=== PATIENT | female | born 1985 | race Caucasian/White ===

== ENCOUNTER 2018-02-10 20:57 | Emergency (ER) | payer BC ==
[~2018-02-10] VITALS: Ht 152.4 cm; Wt 85.5 kg
[~2018-02-10 20:57] MED LIST: MOTRIN800 MG PO; NO MEDS; XANAX0.25 MG PO
[2018-02-10] MEDS ORDERED: ZOFRAN4 MG/TAB PO (23:24)
[2018-02-10] MEDS ORDERED: PERCOCET 5/325M1 TAB PO (23:24)
[2018-02-10 23:48] VITALS: BP 132/79
== END 2018-02-10 23:55 | disposition home or self-care (01) | DRG 605 ==
LOC: ED 20:57
DX: S90.31XA Contusion of right foot, initial encounter (principal); W51.XXXA Accidental striking against or bumped into by another person, initial encounter; Y93.41 Activity, dancing

== ENCOUNTER 2020-05-31 07:32 | Emergency (ER) | payer BC ==
[~2020-05-31] VITALS: Ht 152.4 cm; Wt 85.0 kg
[~2020-05-31 07:32] MED LIST changes: +PERCOCET 5/325M1 TAB PO; +ZOFRAN4 MG/TAB PO
[2020-05-31] MEDS ORDERED: NAPROXEN500 MG PO (08:06)
[2020-05-31 08:10] VITALS: BP 129/72
== END 2020-05-31 08:20 | disposition home or self-care (01) | DRG 605 ==
LOC: ED 07:32
DX: S90.121A Contusion of right lesser toe(s) without damage to nail, initial encounter (principal); W22.03XA Walked into furniture, initial encounter

== ENCOUNTER 2023-02-25 14:25 | Emergency (ER) | payer BC ==
[~2023-02-25] VITALS: Ht 152.4 cm; Wt 67.0 kg
[~2023-02-25 14:25] MED LIST changes: +NAPROXEN500 MG PO
[2023-02-25 14:33] VITALS: BP 122/81
[2023-02-25 15:00] VITALS: BP 109/70
[2023-02-25 15:03] LABS: BASO% 0.2 % (0-3); EOS% 1.3 % (0-8); HEMATOCRIT 36.7 % (37.0-47.0); HEMOGLOBIN 11.5 g/dl (12.0-16.0); LYMPH% 19.7 % (15-41); MEAN CORPUSCULAR HGB 30.7 pG CALC (26.0-32.0); MEAN CORPUSCULAR HGB CONC 31.3 g/dL CAL (32.0-36.0); MONO% 3.4 % (2-13); NEUT# 3.97 thou/uL (2.00-7.15); NEUT% 75.4 % (42-76); RED BLOOD COUNT 3.75 mill/uL (4.20-5.60)
[2023-02-25 15:04] LABS: MEAN CELL VOLUME 97.9 fL CALC (80.0-100.0)
[2023-02-25 15:16] LABS: ALBUMIN 3.9 g/dL (3.2-5.0); ALKALINE PHOSPHATASE 49 u/l (38-126); ANION GAP 11 (6-22 (CALC)); BUN 10 mg/dL (7-17); BUN/CREATININE RATIO 23 (12-20 (CALC)); CARBON DIOXIDE 23 mmol/l (22-30); CHLORIDE 109 mmol/l (95-108); CREATININE 0.4 mg/dL (0.5-1.0); GFR FOR AFR.AMER. > 60 ML/MIN (>=60 (CALC)); GFR OTHER RACES > 60 ML/MIN (>=60 (CALC)); LIPASE 108 u/l (23-300); POTASSIUM 4.1 mmol/l (3.5-5.1); SGOT/AST 16 u/l (14-36); SODIUM 139 mmol/l (137-146); TOTAL PROTEIN 6.6 g/dL (6.3-8.2)
[2023-02-25 15:17] LABS: BILIRUBIN, TOTAL 0.2 mg/dL (0.02-1.3)
[2023-02-25 16:08] VITALS: BP 126/78
[2023-02-25 16:27] LABS: URINE BILIRUBIN - DIPSTICK NEGATIVE (NEGATIVE); URINE BLOOD DIPSTICK NEGATIVE (NEGATIVE); URINE COLOR YELLOW; URINE GLUCOSE - DIPSTICK NEGATIVE (NEGATIVE); URINE KETONE NEGATIVE (NEGATIVE); URINE LEUK ESTERASE NEGATIVE (NEGATIVE); URINE PH 6.5 (4.5-8.0); URINE PROTEIN - DIPSTICK NEGATIVE (NEG-TRACE); URINE SPECIFIC GRAVITY <=1.005; URINE UROBILINOGEN - DIPSTICK 0.2 E.U./dL (0.2)
[2023-02-25 16:28] LABS: URINE NITRITE - DIPSTICK NEGATIVE (Negative)
[2023-02-25] MEDS ORDERED: CIPROFLOXACN500 MG PO (16:56)
[2023-02-25] MEDS ORDERED: ZOFRAN4 MG/TAB PO (16:56)
[2023-02-25] MEDS ORDERED: TORADOL PO (16:56)
[2023-02-25] MEDS ORDERED: METRONIDAZOLE500 MG PO (16:56)
[2023-02-25 17:07] VITALS: BP 126/78
== END 2023-02-25 17:22 | disposition home or self-care (01) | DRG 392 ==
LOC: ED 14:25
PROVIDERS: Family Medicine
DX: K52.9 Noninfective gastroenteritis and colitis, unspecified (principal)
CPT/HCPCS: Q9967